=== PATIENT | female | born 2000 | race Caucasian/White ===

== ENCOUNTER 2024-04-04 16:35 | Emergency (ER) | payer OTHER, SELFPAY ==
[2024-04-04 16:46] VITALS: BP 107/71
[2024-04-04 17:04] VITALS: BMI 20.2
[2024-04-04 17:22] LABS: % Basophils 0.5 % (0-2); % Eosinophils 2.7 % (0-6); % Immature Granulocytes 0.2 % (0-0.5); % Lymphocytes 38.2 % (20.5-51.1); % Neutrophils 49.4 % (42.2-75.2); Absolute Eosinophils 0.1 10^3/uL (0-0.7); Absolute Lymphocytes 1.5 10^3/uL (1.2-3.4); Absolute Monocytes 0.4 10^3/uL (0.1-0.6); Hematocrit 31.1 % (37.0-47.0); Hemoglobin 10.7 g/dL (12.0-16.0); Mean Corp Hgb Conc. 34.4 g/dL (33.0-37.0); Mean Corpuscular Hgb 29.7 pg (27.0-31.0); Mean Corpuscular Volume 86.4 fL (81.0-99.0); Mean Platelet Volume 9.1 fL (7.4-10.4); Nucleated Red Blood Cells % 0 %; Platelet Count 264 10^3/uL (130-400); Red Cell Dist. Width 12.1 % (11.5-14.5)
[2024-04-04 17:23] LABS: Urine Albumin Negative (Neg - Trace); Urine Bilirubin Negative (Negative); Urine Character Clear (Clear); Urine Color Yellow; Urine Glucose Negative (Negative); Urine Ketone Negative (Negative); Urine Leukocyte Negative (Negative); Urine Nitrite Negative (Negative); Urine Occult Blood Negative (Negative); Urine Urobilinogen Negative (Neg - 1+)
[2024-04-04 17:34] LABS: HCG, Serum Qualitative Screen Negative
[2024-04-04 17:42] LABS: ALT (SGPT) < 10 U/L (0-35); AST (SGOT) 21 U/L (14-36); Albumin 3.7 g/dl (3.5-5.0); Alkaline Phosphatase 34 U/L (38-126); Blood Urea Nitrogen 12 mg/dl (7-17); Calcium 8.7 mg/dl (8.4-10.2); Carbon Dioxide 26 mmol/L (22-30); Chloride 107 mmol/L (98-107); Estimated Creatinine Clearance 96 ml/min; Glucose 97 mg/dl (70-99); Lipase 73 U/L (23-300); Potassium 4.3 mmol/L (3.5-5.1); Sodium 137 mmol/L (135-145); Total Bilirubin 0.4 mg/dl (0.2-1.3); Total Protein 6.4 g/dl (6.3-8.2); eGFR > 60.00
[2024-04-04] MEDS: NSS 1000 IV (18:00)
[2024-04-04] MEDS: TORADOL 15 MG IV (18:07)
--- NOTE | 2024-04-04 18:07 | ED.GENMED ---
History of Present Illness
<Arlyn Gama DIRECTOR POST - Last Filed: 04/05/24 09:17>
General
Chief Complaint: Abdominal Pain
Source: patient
Exam Limitations: none
Time Seen by Provider: 04/04/24 17:19
Nursing documentation reviewed up to this point in time: agreed with
Travel History
Have you had any contact with someone who has COVID-19?: No
Do you have any symptoms of coronavirus? Fever > 100 degrees, chills, cough, shortness of breath, sore throat, loss of taste or smell, muscle aches, or headache?: No
History of Present Illness
History of Present Illness:
18-year-old female with history of ovarian cyst, presents stating she has had pain across her lower abdomen more severe on the left with the pain radiating down her legs into her feet last night. No relief with Tylenol or ibuprofen but had some
leftover hydrocodone that she took that gave her some relief
States last evening she had about 15 minutes of persistent vomiting, with the pain, has not vomited since. She denies nausea at this time. She states she 'passed out' 3-4 times due to the pain in her abdomen yesterday. She did not fall but rather
lowered herself to the floor each time. She thinks she was out for seconds.
She denies fever or chills. She denies chest pain or shortness of breath. She states she is currently on her period
Patient states she has chronic headaches,
States she has pain that radiates from her abdomen down to her legs and into her feet whenever she gets her period or ovulates.
She has had pain in the bilateral lower rib cage since she had her breast implants 2 years ago.
Denies any new headaches or new rib pain or new radiation of pain down her legs,
Past History
<Arlyn Gama DIRECTOR POST - Last Filed: 04/05/24 09:17>
Past History
ED Past Medical History: Psychiatric (Depression/anxiety, PTSD) and Other (Cyclic vomiting)
ED Past Surgical History: Gynecological (Breast implants 2 years ago)
Social History
Tobacco: Vaping
Alcohol: Occasional
Drug: Marijuana
Personal: Single
Living: with family
Employment: Employed ([employer] artist)
Review of Systems
<Arlyn Gama, DIRECTOR POST - Last Filed: 04/05/24 09:17>
Review of Systems
Allergies reviewed?: Yes
All Other Systems: ROS reviewed and negative except as documented in HPI and ROS
Constitutional: Denies fever
Respiratory: Denies trouble breathing
Cardiac: Denies chest pain
ABD/GI: Reports abdominal pain, nausea (yesterday) and vomiting (yesterday, none today); Denies diarrhea, constipated or anorexia
: Denies dysuria, frequency, difficulty voiding, urgency or discharge
Musculoskeletal: Reports no symptoms
Skin: Reports no symptoms
Neurological: Reports headache (chronic frequent, mild at this time, nothing new); Denies dizzy
Phy Exam
<Arlyn Gama, DIRECTOR POST - Last Filed: 04/05/24 09:17>
Physical Exam
Physical Exam:
GENERAL: No acute distress. A&Ox3.
CONSTITUTIONAL: Afebrile.
EYES: PERRL, conjunctivae normal
ENMT: moist mucus membranes, Pharynx nl
RESPIRATORY: Regular respirations, nonlabored, lungs clear.
CARDIOVASCULAR: Regular rate and rhythm, no murmurs, no rubs.
GI: Soft, tender across lower abdomen, no guarding, nondistended, normal BS
MUSCULOSKELETAL: Moves with ease. Well perfused.
SKIN: Warm, dry, pink
PSYCH: Normal mood and affect. Well kept, interactive and appropriate
NEUROLOGIC: Awake, alert and oriented. No focal neurological deficits
Course
<Arlyn Gama, DIRECTOR POST - Last Filed: 04/05/24 09:17>
Orders/Labs/Results
Orders:
Orders
04/04/24 17:07
Test Result ONCE
04/04/24 17:14
Complete Blood Count/With Diff Urgent
Comprehensive Metabolic Panel Urgent
HCG, Serum Qualitative Screen Urgent
Lipase Urgent
Urinalysis Reflex To Culture Urgent
Date Specimen was Collected: 04/04/24
Time Specimen was Collected: 16:58
Chlamydia/GC by PCR Urgent
[place] Source: U
Specimen Description:
Date Specimen was Collected: 04/04/24
Time Specimen was Collected: 16:58
04/04/24 17:45
Add On- LAB Urgent
Tests Added?: urine chlamydia/GC
04/04/24 17:46
0.9% Sodium Chloride 1000 ml [Nss] 1,000 ml IV BOLUS
Ketorolac [Toradol] 15 mg IV NOW STA
US Pelvis W Transvag Combined Urgent
Comment:
Reason For Exam: lower abdom pain
04/04/24 17:47
Iohexol [Omnipaque] See Protocol PO NOW STA
04/04/24 20:16
CT Abd/pel W Iv And Oral Contr Urgent
Comment:
Reason For Exam: abd pain
Iohexol [Omnipaque] See Protocol PO NOW STA
Abnormal Lab Results
04/04/24
17:14
WBC 4.0 L 10^3/uL
(4.8-10.8)
RBC 3.60 L 10^6/uL
(4.20-5.40)
Hgb 10.7 L g/dL
(12.0-16.0)
Hct 31.1 L %
(37.0-47.0)
Alkaline Phosphatase 34 L U/L
(38-126)
04/04/24 17:14
04/04/24 17:14
Vital Signs
Initial and Last Documented VS:
Initial Vital Signs
Temp Pulse BP Pulse Ox
99.1 F 74 107/71 100
04/04/24 16:46 04/04/24 16:46 04/04/24 16:46 04/04/24 16:46
Last Documented Vital Signs
Temp Pulse Resp BP Pulse Ox
99.1 F 69 18 102/65 97
04/04/24 16:46 04/04/24 21:29 04/04/24 21:29 04/04/24 21:29 04/04/24 21:29
<ANIL Wang - Last Filed: 04/04/24 22:06>
Orders/Labs/Results
Orders:
Orders
04/04/24 17:07
Test Result ONCE
04/04/24 17:14
Complete Blood Count/With Diff Urgent
Comprehensive Metabolic Panel Urgent
HCG, Serum Qualitative Screen Urgent
Lipase Urgent
Urinalysis Reflex To Culture Urgent
Date Specimen was Collected: 04/04/24
Time Specimen was Collected: 16:58
Chlamydia/GC by PCR Urgent
[place] Source: U
Specimen Description:
Date Specimen was Collected: 04/04/24
Time Specimen was Collected: 16:58
04/04/24 17:45
Add On- LAB Urgent
Tests Added?: urine chlamydia/GC
04/04/24 17:46
0.9% Sodium Chloride 1000 ml [Nss] 1,000 ml IV BOLUS
Ketorolac [Toradol] 15 mg IV NOW STA
US Pelvis W Transvag Combined Urgent
Comment:
Reason For Exam: lower abdom pain
04/04/24 17:47
Iohexol [Omnipaque] See Protocol PO NOW STA
04/04/24 20:16
CT Abd/pel W Iv And Oral Contr Urgent
Comment:
Reason For Exam: abd pain
Iohexol [Omnipaque] See Protocol PO NOW STA
Abnormal Lab Results
04/04/24
17:14
WBC 4.0 L 10^3/uL
(4.8-10.8)
RBC 3.60 L 10^6/uL
(4.20-5.40)
Hgb 10.7 L g/dL
(12.0-16.0)
Hct 31.1 L %
(37.0-47.0)
Alkaline Phosphatase 34 L U/L
(38-126)
04/04/24 17:14
04/04/24 17:14
Vital Signs
Initial and Last Documented VS:
Initial Vital Signs
Temp Pulse BP Pulse Ox
99.1 F 74 107/71 100
04/04/24 16:46 04/04/24 16:46 04/04/24 16:46 04/04/24 16:46
Last Documented Vital Signs
Temp Pulse Resp BP Pulse Ox
99.1 F 69 18 102/65 97
04/04/24 16:46 04/04/24 21:29 04/04/24 21:29 04/04/24 21:29 04/04/24 21:29
<Arlyn Gama, DIRECTOR POST - Last Filed: 04/05/24 09:17>
MDM/Problems Addressed
MDM/Problems Addressed:
18-year-old female with history of ovarian cyst, presents stating she has had pain across her lower abdomen more severe on the left with the pain radiating down her legs into her feet last night. No relief with Tylenol or ibuprofen but had some
leftover hydrocodone that she took that gave her some relief
States last evening she had about 15 minutes of persistent vomiting, with the pain, has not vomited since. She denies nausea at this time. She states she 'passed out' 3-4 times due to the pain in her abdomen yesterday. She did not fall but rather
lowered herself to the floor each time. She thinks she was out for seconds.
She denies fever or chills. She denies chest pain or shortness of breath. She states she is currently on her period
CBC with no clinically significant abnormality, consistent with her chronic mild anemia
CMP normal
hCG negative
UA negative
UA for chlamydia and GC pending
Pelvic ultrasound pending
If nothing shows on the pelvic ultrasound, will get CT with oral contrast (pt drinking in prep)
<ANIL Wang - Last Filed: 04/04/24 22:06>
MDM/Problems Addressed
MDM/Problems Addressed:
18-year-old female with history of ovarian cyst, presents stating she has had pain across her lower abdomen more severe on the left with the pain radiating down her legs into her feet last night. No relief with Tylenol or ibuprofen but had some
leftover hydrocodone that she took that gave her some relief
States last evening she had about 15 minutes of persistent vomiting, with the pain, has not vomited since. She denies nausea at this time. She states she 'passed out' 3-4 times due to the pain in her abdomen yesterday. She did not fall but rather
lowered herself to the floor each time. She thinks she was out for seconds.
She denies fever or chills. She denies chest pain or shortness of breath. She states she is currently on her period
CBC with no clinically significant abnormality, consistent with her chronic mild anemia
CMP normal
hCG negative
UA negative
UA for chlamydia and GC pending
Pelvic ultrasound pending
If nothing shows on the pelvic ultrasound, will get CT with oral contrast (pt drinking in prep)
2200: Ultrasound negative for any acute findings no evidence of torsion. CAT scan also negative as discussed. Patient no acute distress here well-appearing stable vital signs .stable for discharge home with [employer] [facility] follow-up. (ANIL Hutchison)
<ANIL Wang - Last Filed: 06/11/24 22:06>
*Critical Care Note
Total Time (30-74mins, 75-104mins- exclusive of procedures): Not Applicable
ED Attending Note
<Arlyn Gama NP - Last Filed: 04/05/24 09:17>
-
Portions of this chart may have been created with voice recognition software.� Occasional wrong word or��sound alike� substitutions may have occurred due to the inherent limitations of voice recognition software.
Discharge Plan
Departure
Patient Disposition: Home (Routine Discharge)
Date of Disposition: 04/04/24
Time of Disposition: 22:04
Patient with high blood pressure during this ER visit?: No
Condition: Fair
Covid-19: Not Applicable
Discharge Problem:
Abdominal pain
Instructions: Abdominal Pain
Prescriptions:
No Action
quetiapine 25 MG tablet
75 mg PO HS
escitalopram oxalate 20 MG tablet
20 mg PO DAILY
ondansetron [Zofran ODT] 8 MG tablet,disintegrating
8 mg PO Q8H PRN (Reason: nausea/vomiting) Qty: 8 0RF
Referrals:
Rama Rivera PA [Family Provider] -
Karli Cosby, [Active] -
Activity Restrictions/Additional Instructions:
As discussed follow-up with your family doctor as well as gynecology. Please give them a call tomorrow to make an appointment as soon as possible. Return if any worsening of symptoms.
Interventions
Interventions:
*Risk Screen - Suicide Last Done: 04/04/24 17:05
*General Assessment Last Done: 04/04/24 17:05
*Neglect/Abuse Screening Last Done: 04/04/24 17:05
ED- Fall Risk Assessment Last Done: 04/04/24 17:39
*ED COVID-19 Vaccine History Last Done: 04/04/24 17:05
*Nursing Disposition Last Done: 04/04/24 22:12
TJ-Tarvzs-Epzjkaocuf Assessment Last Done: 04/04/24 17:38
Discharge Date and Time
Discharge Date/Time: 04/04/24 22:12
Print Language: COLOMBIAN
[2024-04-04] MEDS: OMNIPAQUE 50 ML PO (18:10)
[2024-04-04 19:53] VITALS: BP 108/58
[2024-04-04 21:29] VITALS: BP 102/65
== END 2024-04-04 22:12 | disposition home or self-care (01) ==
LOC: EMR 16:35
PROVIDERS: EMERGENCY PHYSICIAN Emergency Medicine; FAMILY PHYSICIAN Family Medicine
DX: R10.30 Lower abdominal pain, unspecified (principal)
CPT/HCPCS: 99285; 96374; 96361; 74177; 76830; 76856; 80053; 81003; 83690; 84703; 85025; 87491; 87591; Q9967

== ENCOUNTER 2024-04-06 22:42 | Emergency (ER) | payer OTHER, SELFPAY ==
[2024-04-06 22:43] VITALS: BP 100/52
[2024-04-06 22:57] LABS: % Basophils 0.3 % (0-2); % Eosinophils 0.8 % (0-6); % Immature Granulocytes 0.1 % (0-0.5); % Lymphocytes 20.2 % (20.5-51.1); % Monocytes 5.7 % (1.7-9.3); % Neutrophils 72.9 % (42.2-75.2); Absolute Eosinophils 0.1 10^3/uL (0-0.7); Absolute Lymphocytes 1.5 10^3/uL (1.2-3.4); Absolute Monocytes 0.4 10^3/uL (0.1-0.6); Absolute Neutrophils 5.5 10^3/uL (1.4-6.5); Hematocrit 35.1 % (37.0-47.0); Hemoglobin 12.3 g/dL (12.0-16.0); Mean Corpuscular Hgb 29.1 pg (27.0-31.0); Mean Corpuscular Volume 83.2 fL (81.0-99.0); Mean Platelet Volume 9.1 fL (7.4-10.4); Nucleated Red Blood Cells % 0 %; Platelet Count 327 10^3/uL (130-400); Red Blood Cell Count 4.22 10^6/uL (4.20-5.40); Red Cell Dist. Width 11.9 % (11.5-14.5); White Blood Cell Count 7.5 10^3/uL (4.8-10.8)
[2024-04-06 23:08] LABS: HCG, Serum Qualitative Screen Negative
[2024-04-06 23:11] LABS: ALT (SGPT) 17 U/L (0-35); AST (SGOT) 24 U/L (14-36); Albumin 4.6 g/dl (3.5-5.0); Alkaline Phosphatase 59 U/L (38-126); Blood Urea Nitrogen 16 mg/dl (7-17); Calcium 10.2 mg/dl (8.4-10.2); Carbon Dioxide 25 mmol/L (22-30); Chloride 104 mmol/L (98-107); Glucose 98 mg/dl (70-99); Lipase 68 U/L (23-300); Potassium 4.2 mmol/L (3.5-5.1); Sodium 137 mmol/L (135-145); Total Bilirubin 0.5 mg/dl (0.2-1.3); Total Protein 7.6 g/dl (6.3-8.2); eGFR > 60.00
--- NOTE | 2024-04-07 00:24 | ED.GENMED ---
History of Present Illness
<ROSE Driscoll - Last Filed: 04/07/24 00:35>
General
Chief Complaint: Abdominal Pain
Source: patient
Exam Limitations: none
Time Seen by Provider: 04/07/24 00:08
Travel History
Have you had any contact with someone who has COVID-19?: No
Do you have any symptoms of coronavirus? Fever > 100 degrees, chills, cough, shortness of breath, sore throat, loss of taste or smell, muscle aches, or headache?: No
History of Present Illness
History of Present Illness:
24 YO F with a PMH of ovarian cyst presents here to the ED tonight after severe lower left and right sided abdominal pain since 04/04/24. She also complains of upper left sided chest pain which started today. She has been vomiting and has not eaten
in the past 24 hours. She also complains of loose stools. She does have radiation of pain into her back, butt, and down her legs. Denies blood in her stool. Denies hemoptysis. She is only comfortable when she is lying down in one position or
showering. She takes daily Prozac and Lorazepam as needed.
She had a CT of her abdomen and pelvis and a pelvic U/S and was told both were normal. Her abdominal pain was originally bothering her on the left side, and now has progressed to the lower right side. She also had a CBC, CMP, UA, and chlamydia and
gonorrhea test while she was in the hospital last.
(-) Drinking history
(+)Vape, Smokes marijuana
Pt is in too much pain to move and would rather only have her abdomen examined once. She will wait for the doctor.
Past History
<ROSE Driscoll - Last Filed: 04/07/24 00:35>
Past History
ED Past Medical History: Psychiatric (Depression/anxiety, PTSD) and Other (Cyclic vomiting)
ED Past Surgical History: Gynecological (Breast implants 2 years ago)
Social History
Tobacco: Vaping
Alcohol: Occasional
Drug: Marijuana
Personal: Single
Living: with family
Employment: Employed ([employer] artist)
Review of Systems
<ST [place] - Last Filed: 04/07/24 00:35>
Review of Systems
Allergies reviewed?: Yes
Constitutional: Reports no symptoms
EENT: Reports no symptoms
Respiratory: Reports no symptoms
Cardiac: Reports no symptoms
ABD/GI: Reports abdominal pain, nausea, vomiting and diarrhea
: Reports no symptoms
Musculoskeletal: Reports muscle pain
Skin: Reports no symptoms
Neurological: Reports no symptoms
Endocrine: Reports no symptoms
Phy Exam
<Era Zhu [facility] - Last Filed: 04/07/24 00:35>
Physical Exam
Physical Exam:
Patient deferred and will wait to have the exam with the doctor.
General Physical Exam
General Presentation: moderate distress
General age: appears stated age
General Habitus: normal
General Mental: alert
Course
<Era Zhu [facility] - Last Filed: 04/07/24 00:35>
Orders/Labs/Results
Orders:
Orders
04/06/24 22:46
Test Result ONCE
04/06/24 22:48
Complete Blood Count/With Diff Urgent
Comprehensive Metabolic Panel Urgent
HCG, Serum Qualitative Screen Urgent
Lipase Urgent
04/07/24 00:54
Ketorolac [Toradol] 30 mg IM NOW STA
Oxycodone [Roxicodone] 5 mg PO NOW STA
Abnormal Lab Results
04/06/24
22:48
Hct 35.1 L %
(37.0-47.0)
Lymphocytes % 20.2 L %
(20.5-51.1)
04/06/24 22:48
04/06/24 22:48
Vital Signs
Initial and Last Documented VS:
Initial Vital Signs
Temp Pulse Resp BP Pulse Ox
98.3 F 80 18 100/52 99
04/06/24 22:43 04/06/24 22:43 04/06/24 22:43 04/06/24 22:43 04/06/24 22:43
Last Documented Vital Signs
Temp Pulse Resp BP Pulse Ox
98.3 F 80 18 100/52 99
04/06/24 22:43 04/06/24 22:43 04/06/24 22:43 04/06/24 22:43 04/06/24 22:43
<Jose Long, DO - Last Filed: 04/07/24 01:07>
Orders/Labs/Results
Orders:
Orders
04/06/24 22:46
Test Result ONCE
04/06/24 22:48
Complete Blood Count/With Diff Urgent
Comprehensive Metabolic Panel Urgent
HCG, Serum Qualitative Screen Urgent
Lipase Urgent
04/07/24 00:54
Ketorolac [Toradol] 30 mg IM NOW STA
Oxycodone [Roxicodone] 5 mg PO NOW STA
Abnormal Lab Results
04/06/24
22:48
Hct 35.1 L %
(37.0-47.0)
Lymphocytes % 20.2 L %
(20.5-51.1)
04/06/24 22:48
04/06/24 22:48
Vital Signs
Initial and Last Documented VS:
Initial Vital Signs
Temp Pulse Resp BP Pulse Ox
98.3 F 80 18 100/52 99
04/06/24 22:43 04/06/24 22:43 04/06/24 22:43 04/06/24 22:43 04/06/24 22:43
Last Documented Vital Signs
Temp Pulse Resp BP Pulse Ox
98.3 F 80 18 100/52 99
04/06/24 22:43 04/06/24 22:43 04/06/24 22:43 04/06/24 22:43 04/06/24 22:43
<ROSE Driscoll - Last Filed: 04/07/24 00:35>
MDM/Problems Addressed
Differential Diagnosis Includes:
Viral gastroenteritis, Appendicitis, Ovarian cyst, Ovarian torsion, Diverticulitis, Pancreatitis, (Ectopic), Anxiety, AR, Aortic dissection, AAA
MDM/Problems Addressed:
Abdominal pain since 04/04
<ROSE Driscoll - Last Filed: 04/07/24 00:35>
*Critical Care Note
Total Time (30-74mins, 75-104mins- exclusive of procedures): Not Applicable
ED Attending Note
<ROSE Driscoll - Last Filed: 04/07/24 00:35>
-
Portions of this chart may have been created with voice recognition software.� Occasional wrong word or��sound alike� substitutions may have occurred due to the inherent limitations of voice recognition software.
<Jose Long DO - Last Filed: 04/07/24 01:07>
ED Attending Note
Patient seen and examined by attending physician: Yes
I performed the substantive portion of visit, reviewed & personally made and approve the management plan that is documented in note by myself or GALI.: Yes
ED Attending Note:
I have seen and evaluated the patient with a [id number] encounter. I have spoken to the advance practicer provider and involved in the medical history, the physical exam, medical decision making.
Evaluation and management service: agree unless noted differently below.
Results interpretation: agree unless noted differently below.
Focused HPI: 24-year-old female presenting with recurrent abdominal pain. She was here few days ago and had a negative CT A/P and ultrasound. Patient states symptoms have progressed since 2020. That time, she stopped control. Symptoms
appear to recur every month
Physical exam: Sitting in bed comfortably. Mild generalized abdominal tenderness noted
Medical Decision Making: Given the negative CT abdomen pelvis few days ago with no change in her blood work today, doubt significant abdominal pathology. Given the monthly recurrence, we discussed menstrual cycle related pain or possibly
endometriosis. Patient has POOL [facility]ER follow-up soon. Will place back on control. Patient is happy with this plan.
Discharge Plan
Departure
Patient Disposition: Home (Routine Discharge)
Date of Disposition: 04/07/24
Time of Disposition: 00:55
Patient with high blood pressure during this ER visit?: No
Discharge Problem:
Abdominal pain
Prescriptions:
New
drospirenone-ethinyl estradiol [VALDO (28)] 3-0.02 mg tablet
1 tab PO DAILY Qty: 28 0RF
oxycodone 5 mg tablet
5 mg PO Q8H PRN (Reason: Pain) Qty: 7 0RF
ondansetron 4 mg Tablet,Disintegrating
4 mg PO BIDPRN PRN (Reason: nausea/vomiting) Qty: 10 0RF
No Action
quetiapine 25 MG tablet
75 mg PO HS
escitalopram oxalate 20 MG tablet
20 mg PO DAILY
ondansetron [Zofran ODT] 8 MG tablet,disintegrating
8 mg PO Q8H PRN (Reason: nausea/vomiting) Qty: 8 0RF
Referrals:
Joan Booker PA-C [Family Provider] -
Activity Restrictions/Additional Instructions:
Please return for any worsening symptoms.
You may return at any time if you have further concerns.
Please keep your [facility]ER appointment and discuss possible endometriosis diagnosis.
Thank you for choosing [facility].
Interventions
Interventions:
*Risk Screen - Suicide Last Done: 04/06/24 22:43
*General Assessment Last Done: 04/06/24 22:43
*Neglect/Abuse Screening Last Done: 04/06/24 22:43
Discharge Date and Time
Print Language: [place]
[2024-04-07] MEDS: ROXICODONE 5 MG PO (01:02)
[2024-04-07] MEDS: TORADOL 30 MG IM (01:03)
== END 2024-04-07 01:23 | disposition home or self-care (01) ==
LOC: EMR 22:42
PROVIDERS: Emergency Medicine; EMERGENCY PHYSICIAN Student in an Organized Health Care Education/Training Program; FAMILY PHYSICIAN Physician Assistant Medical
DX: R10.9 Unspecified abdominal pain (principal)
CPT/HCPCS: 99283; 80053; 83690; 84703; 85025

== ENCOUNTER → 2025-01-18 07:15 | Outpatient (REF) | payer OTHER, SELFPAY | LOC: MRI 3T 07:15 | PROVIDERS: ATTENDING PHYSICIAN Nurse Practitioner Adult Health; FAMILY PHYSICIAN Physician Assistant Medical | DX: M54.2 Cervicalgia (principal) | CPT/HCPCS: 72141 ==